=== PATIENT | male | born 1990 | race Caucasian/White ===

== ENCOUNTER 2017-05-25 20:14 | Emergency (ER) | payer OTHER ==
[~2017-05-25] VITALS: Ht 167.6 cm; Wt 86.2 kg
[2017-05-25 20:27] VITALS: BP 118/65
[2017-05-26] MEDS ORDERED: LIDOCAINE 1% HCL (LOCAL ANESTH.) INJ 20ML MDV ONE (02:21)
[2017-05-26] MEDS ORDERED: BACITRACIN TOP OINT 1 UD PKG TOP ONE ×2 (02:44→04:00)
[2017-05-26] MEDS ORDERED: LIDOCAINE 1% HCL (LOCAL ANESTH.) INJ 20ML MDV IJ ONE (04:00)
== END 2017-05-26 03:46 | disposition home or self-care (01) ==
LOC: ER 20:19
DX: S61.210A Laceration without foreign body of right index finger without damage to nail, initial encounter (principal); R42 Dizziness and giddiness; W45.8XXA Other foreign body or object entering through skin, initial encounter; Y93.89 Activity, other specified; Y92.89 Other specified places as the place of occurrence of the external cause; Y99.8 Other external cause status
CPT/HCPCS: 12001; 70450; 73140; 93005; 99284; J2001